=== PATIENT | male | born 1980 | race African-American/Black ===

== ENCOUNTER 2017-03-29 12:26 | Emergency (ER) | payer BC, MEDICAID ==
[~2017-03-29] VITALS: Ht 177.8 cm; Wt 100.0 kg
[2017-03-29 13:24] VITALS: BP 147/97
[2017-03-29] MEDS ORDERED: HYDR25TA PO (13:28)
[2017-03-29] MEDS ORDERED: PREDNISONE 20MG TABLET PO ONE (16:00)
== END 2017-03-29 16:37 | disposition home or self-care (01) ==
LOC: ER 16:37
DX: T63.441A Toxic effect of venom of bees, accidental (unintentional), initial encounter (principal); Y92.89 Other specified places as the place of occurrence of the external cause; I10 Essential (primary) hypertension
CPT/HCPCS: 99283; J7512

== ENCOUNTER 2019-07-02 09:59 | Emergency (ER) | payer BC, MEDICAID ==
[~2019-07-02] VITALS: Ht 177.8 cm; Wt 94.0 kg
[~2019-07-02 09:59] MED LIST: HYDR25TA PO
[2019-07-02] MEDS ORDERED: KETOROLAC 60MG/2ML VIAL IM ONE (11:15)
[2019-07-02 11:49] VITALS: BP 161/98
== END 2019-07-02 12:58 | disposition home or self-care (01) ==
LOC: ER 09:59
DX: M25.511 Pain in right shoulder (principal)
CPT/HCPCS: 73030; 96372; 99283; J1885